=== PATIENT | male | born 1990 | race Caucasian/White ===

== ENCOUNTER → 2017-01-22 | Outpatient (CLI) | payer BC ==
[~2017-01-22] MED LIST: OXYC-57 PO
== END | disposition home or self-care (01) ==
LOC: C.RDSM 10:25
PROVIDERS: ATTEND Family Medicine Sports Medicine
DX: M54.5 Low back pain (principal)

== ENCOUNTER → 2017-03-11 | Outpatient (CLI) | payer BC ==
--- NOTE | 2017-03-11 19:13 | DIAGNOSTIC IMAGING REPORT ---
LUMBAR SPINE W/O CONTRAST CLINICAL HISTORY: 26 years-old Male with LUMBAR STRAIN. Patient presents with ongoing low back pain for approximately 9 months status post remote injury. COMPARISON: Lumbar spine radiographs 01/22/2017. TECHNIQUE: Multiplanar, multi sequence MRI of the lumbar spine was performed without intravenous contrast. FINDINGS: No focal bone marrow edema, fracture or malalignment. The imaged intra-abdominal, intrapelvic and paraspinal structures demonstrate no focal abnormality. Signal within the cord is within normal limits. Conus medullaris terminates at T12-L1. The axial images are mildly limited secondary to patient motion. T12-L1: No central canal or neural foraminal stenosis. L1-L2: No central canal or neural foraminal stenosis. L2-L3: No central canal or neural foraminal stenosis. L3-L4: No central canal or neural foraminal stenosis. L4-L5: Broad-based posterior disc bulge mildly flattens the ventral thecal sac. No central canal or foraminal narrowing. L5-S1: Mild posterior intervertebral disc space narrowing is present in conjunction with a small circumferential annular disc bulge. Superimposed central broad-based protrusion indents the ventral thecal sac without significant central canal narrowing. There is mild bilateral foraminal stenosis. IMPRESSION: 1. No acute fracture or focal bone marrow edema. 2. At L5-S1 there is mild posterior intervertebral disc space narrowing with a small circumferential annular disc bulge and superimposed central broad-based disc protrusion which indents the ventral thecal sac without significant central canal narrowing, however there is mild bilateral foraminal stenosis. 3. Axial images are mildly limited secondary to patient motion. The above report was generated using voice recognition software. It may contain grammatical, syntax or spelling errors. Electronically signed by: Nigel Crabtree M.D. 03/11/2017 7:11 PM Dictated Date/Time: 03/11/2017 7:05 PM
== END | disposition home or self-care (01) ==
LOC: C.MRI 18:28
PROVIDERS: ATTEND Family Medicine Sports Medicine
DX: S39.012D Strain of muscle, fascia and tendon of lower back, subsequent encounter (principal); X58.XXXD Exposure to other specified factors, subsequent encounter; M51.27 Other intervertebral disc displacement, lumbosacral region